=== PATIENT | male | born 1965 | race Caucasian/White ===

== ENCOUNTER → 2017-02-15 | Day surgery (SDC) | payer OTHER ==
[~2017-02-15] VITALS: Ht 177.8 cm; Wt 89.4 kg
[~2017-02-15] MED LIST: LISI-567 PO; Sodium Chloride LOK Flush 10 mL Syringe IV PRN
[2017-02-15] MEDS: fentaNYL-PF 50 mCg/mL 2 mL Inj IVPUSH PRN ×2 (09:07→15:07)
[2017-02-15] MEDS: 0.9% Sodium Chloride 1,000 ML IV PRN ×2 (09:08→15:07)
[2017-02-15 13:27] VITALS: BP 123/80; PULSE 64; RESP 14; O2SAT 98
--- NOTE | 2017-02-15 15:20 | PCM.ENDCOL ---
Colonoscopy Date of Service: Feb 15, 2017 Physician Harshil Garcia MD Pre Procedure Diagnosis: Screening Post Procedure Dx & Findings: Polyp hemorrhoids and diverticula Procedure Colonoscopy PROCEDURE IN DETAIL: Prep adequate Withdrawal time 12 minutes After unremarkable rectal examination the Olympus video colonoscope was inserted patient's anal canal and was advanced to cecum. Landmarks were identified including the ileocecal valve and appendiceal orifice. Scope was withdrawn systematically. Visualized colonic mucosa showed healthy shiny mucosa with normal healthy-appearing vasculature. In the transverse colon, there was a 2 mm polyp which was removed completely using cold snare. In the sigmoid colon there was a 2 mm polyp which was removed completely using cold snare. In the rectum there was a 2 mm polyp which was removed completely using cold snare. The colon there a few small diverticuli. In the rectum retroflexion was done which showed hemorrhoids. Anal canal was inspected carefully on the way out and hemorrhoids noted. Impression Polyps 3 status post complete removal Diverticuli Hemorrhoids Recommendation Repeat colonoscopy 3 years Diverticular diet Presedation Assessment Risks and Benefits Informed consent was obtained from the patient after all risks and benefits including but not limited to drug reaction, infection, pain, bleeding, perforation, as well as alternatives were discussed. Patient monitoring Continuous pulse oximetry, cardiac monitoring, blood pressure monitoring, IV access, and oxygen at 2L per nasal cannula. Periprocedural Fentanyl: Fentanyl 125mcg Incrementally Midazolam: Midazolam 6mg Incrementally Complications There were no periprocedural complications identified. Post Procedure Plan Post Procedure Recommendations 1. Restrict activities today. 2. Resume normal activities in the morning. 3. Resume medications. 4. Patient informed of normal post procedure side effects as bloating, drowsiness, blood streaking in the stool. 5. average risk CRCS. If colon polyps come back as: -Hyperplastic- can repeat colonoscopy in 10 years -Tubular adenoma- repeat colonoscopy in 5 years -Tubulovillous/villous adenoma- repeat colonoscopy in 3 years -If any dysplasia- return to clinic as soon as possible 6. Please don't hesitate to call me with any questions. Harshil Garcia MD Feb 15, 2017 15:20
[2017-02-15 15:25] VITALS: BP 104/69; PULSE 60; RESP 16; O2SAT 94
[2017-02-15 15:38] VITALS: BP 97/66; PULSE 62; RESP 16; O2SAT 93
== END | disposition home or self-care (01) ==
LOC: END 07:48
PROVIDERS: ATTEND Internal Medicine
DX: Z12.11 Encounter for screening for malignant neoplasm of colon (principal); D12.3 Benign neoplasm of transverse colon; D12.5 Benign neoplasm of sigmoid colon; K62.1 Rectal polyp; K57.30 Diverticulosis of large intestine without perforation or abscess without bleeding; K64.8 Other hemorrhoids; I10 Essential (primary) hypertension; E78.5 Hyperlipidemia, unspecified; G47.30 Sleep apnea, unspecified; F17.290 Nicotine dependence, other tobacco product, uncomplicated; F12.90 Cannabis use, unspecified, uncomplicated
CPT/HCPCS: 45385; 99153; G0500; J2250; J3010; J7030